=== PATIENT | male | born 1990 | race Caucasian/White ===

== ENCOUNTER 2019-08-02 11:39 | Emergency (ER) | payer SELFPAY ==
[~2019-08-02] VITALS: Ht 157.5 cm; Wt 80.0 kg
[~2019-08-02 11:39] MED LIST: CYCL10TA7 PO; IBUP800T48 PO
[2019-08-02 11:43] VITALS: BP 157/75; PULSE 75; RESP 18; Ht 157.5 cm; Wt 80.0 kg
[2019-08-02] MEDS ORDERED: KETOROLAC 30 MG INJ IM STA (12:49)
[2019-08-02] MEDS ORDERED: DEXAMETHASONE 10 MG/ML 1 ML INJ IM ONE (13:00)
== END 2019-08-02 13:30 | disposition home or self-care (01) ==
LOC: FTE 11:39
DX: M54.5 Low back pain (principal)
CPT/HCPCS: 96372; 99284; J1100; J1885